=== PATIENT | male | born 1970 | race Caucasian/White ===

== ENCOUNTER 2021-09-14 02:48 | Emergency (ER) | payer OTHER, SELFPAY ==
[2021-09-14 04:01] VITALS: BP 168/89; PULSE 82; RESP 18; TEMP 36.7; O2SAT 98; BMI 28.8
== END 2021-09-14 05:16 | disposition left against medical advice (07) ==
PROVIDERS: Emergency Provider Emergency Medicine; PCP Internal Medicine
DX: H57.11 Ocular pain, right eye (principal)

== ENCOUNTER 2025-03-12 12:15 | Emergency (ER) | payer OTHER, SELFPAY ==
--- NOTE | ~2025-03-12 | XR_ITS ---
CLINICAL HISTORY: palp 2 view chest x-ray. Comparison: None Findings: No consolidation or effusion. A 1 cm nodular density overlies left upper lung of the posterior left 5th and 6th rib interspace. Cardiac and mediastinal contours are unremarkable. Bones unremarkable. Impression: 1. No acute pulmonary disease. 2. 1 cm nodular density overlying left upper lung. Consider comparison with prior chest x-rays, if available, or further evaluation with nonemergent CT chest. This document has been electronically signed by: Levar Ac MD on 03/12/2025 15:09:15
[2025-03-12 12:20] VITALS: BP 190/114; PULSE 120; O2SAT 96
--- NOTE | 2025-03-12 12:22 | ECG_ITS ---
Test Reason : HYPERTENSION Blood Pressure : */* mmHG Vent. Rate : 87 BPM Atrial Rate : 87 BPM P-R Int : 146 ms QRS Dur : 84 ms QT Int : 370 ms P-R-T Axes : 45 67 45 degrees QTcB Int : 445 ms Normal sinus rhythm Normal ECG When compared with ECG of 02-Sep-2004 07:11, QT has lengthened Referred By: Generic ED Physician Electronically Signed By: YOANNA WARREN MD
[2025-03-12 12:29] VITALS: BP 173/101; PULSE 94; RESP 19; TEMP 36.4; O2SAT 98; BMI 29.2
--- OUTSIDE RECORDS SUMMARY | 2025-03-12 12:51 | XMS_ITS | Clinical Summary ---
Author Organization [facility] Address [address] [facility] [address] [place] [id number] Phone Care Team Providers Care Meat Team Lead Name Role Phone Minor Cortés MD Primary Care Provider [phone] Allergies No known active allergies Medications atorvastatin (LIPITOR) 10 MG tablet Take 10 mg by mouth. 09/30/2023 Active ibuprofen (ADVIL,MOTRIN) 800 MG tablet Take 800 mg by mouth every 8 (eight) hours as needed. 07/27/2023 Active B-complex with vitamin C tablet Take 1 tablet by mouth daily. Active adalimumab-adaz (HYRIMOZ,CF, PEN) 40 mg/0.4 mL SubQ PnIjIndications: Psoriatic arthritis Inject 1 pen. under the skin every 14 (fourteen) days. 0.8 mL 5 10/31/2024 Active Active Problems Problem Noted Date Diagnosed Date Encounter for monitoring of adalimumab therapy 0 06/20/2024 Psoriatic arthritis 03/16/2023 Assessment & Plan (10/05/2023 9:16 AM EDT): Psoriatic arthritis very well-controlled on Hyrimoz every 14 days. He has no active synovitis and minimal psoriasis on his knees. Sent him for some baseline labs today. Assessment & Plan (03/16/2023 2:29 PM EST): Psoriatic arthritis well-controlled on Humira every other week. He has no active synovitis or swelling and minimal psoriasis. Labs to be checked in April by Dr. Oliver. Primary osteoarthritis involving multiple joints 03/16/2023 Assessment & Plan (10/05/2023 9:17 AM EDT): Osteoarthritis in multiple joints with no swelling and minimal stiffness. He can take Ibuprofen 800mg as needed. He was previously on diclofenac but has not taken this in a very long time. Assessment & Plan (03/16/2023 2:30 PM EST): Osteoarthritis in multiple joints bothersome only with prolonged activity. He can take Tylenol 650 mg as needed or resume taking diclofenac only as needed. Family History Medical History Relation Comments Heart attack Brother No Known Problems Daughter Alzheimer's disease Father Cancer Mother No Known Problems Son Relation Status Comments Brother Daughter Father Mother Son Social History Tobacco Use Types Packs/Day Years Used Date Smoking Tobacco: Former Cigarettes Smokeless Tobacco: Never Tobacco Cessation:Counseling Given: Not Answered Alcohol Use Standard Drinks/Week Comments Yes 0 (1 standard drink = 0.6 oz pur e alcohol) 2-3 month Education Answer Date Recorded Are you interested in more education? Not on florian e 03/03/2023 Are you concerned about learning? Not on file 03/03/2023 No 03/03/2023 No 03/03/2023 Digital Access Answer Date Recorded No 03/03/2023 No 03/03/2023 Reliable internet access at home? Not on file 03/03/2023 Device with a working camera? Not on file Sex and Gender Information Value Date Recorded Sex Assigned at Not on file Legal Sex Male 9:42 AM EDT Gender Identity Not on file Sexual Orientation Not on file Last Filed Vital Signs Vital Sign Reading Time Taken Comments Blood Pressure 128/72 10/31/2024 8:58 AM EDT Pulse 78 10/05/2023 8:35 AM EDT Temperature - - Respiratory Rate - - Oxygen Saturation 98% 10/05/2023 8:35 AM EDT Inhaled Oxygen Concentration - - Weight 81.6 kg (180 lb) 10/31/2024 8:58 AM EDT Height 172.7 cm (5' 8 ) 10/05/2023 8:35 AM EDT Body Mass Index 27.37 10/05/2023 8:35 AM EDT Plan of Treatment Upcoming Encounters Date Type Department Care Team (Late st Contact Info) Description 05/15/2025 2:00 PM EST Office Visit [facility] Rheumatology [address] [place] [address] Bessy Dowd, DO [address] [facility], [address] [place] [address] Health Maintenance Due Date Last Done Comments Adult Td,Tdap Booster 1968 LIPID PANEL 1968 COVID-19 VACCINE (#1) 1973 DEPRESSION SCREENING 1980 SMOKING Hx and SMOKELESS TOBACCO SCREENING 1981 HIV ONE-TIME SCREENING (18-65 YEARS) 1986 PNEUMOCOCCAL VACCINES (50+ years) (1 of 2 - PCV) 10/29/1987 ZOSTER VACCINES (1 of 2) 10/29/1987 SCREENING FOR DIABETES 10/29/2003 COLOGUARD 2013 COLONOSCOPY 2013 COLORECTAL CANCER SCREENING 2013 FIT TEST 2013 FOBT 2013 SIGMOIDOSCOPY 2013 VIRTUAL COLONOSCOPY 2013 RSV VACCINE (1 - Risk 50-74 years 1-dose series) 2018 INFLUENZA VACCINE (#1) 2024 , 02/01/2020, 01/13/2017, Additional history exists HEPATITIS C SCREENING Completed 10/27/2024 HEPATITIS A VACCINES Aged Out No long er eligible based on patient's age to complete this topic HIB VACCINES Aged Out No longer eligi ble based on patient's age to complete this topic MENINGOCOCCAL VACCINES (ACWY) Aged Out No longer eligible based on patient's age to complete this topic MENINGOCOCCAL VACCINES (B) Aged Out N o longer eligible based on patient's age to complete this topic Medical Devices Not on file Procedures Procedure Name Priority Date/Time Associated Diagnosis Comments HEPATITIS C ANTIBODY, QUALITATIVE Routine 10/27/2024 1:05 PM EDT Encounter for monitoring of adalimumab therapy from Last 3 Months or Most Recently Relevant to Health Maintenance Results * Hepatitis C antibody, qualitative (10/27/2024 1:05 PM EDT) HCV NON-REACTIV E NON-REACTI VE Blood 10/27/2024 1:05 PM EDT 10/27/2024 1:19 PM EDT us Tonja Ayala MD, MPH LAB BLOOD BKR ORDERABLES Final Result [address] [place] [address] from Last 3 Months or Most Recently Relevant to Health Maintenance Insurance [employer] PPO [address] [place] [address] [facility] P[address] [place] [id number] [facility] [address] [place] [address] [facility] [address] [place] [address] [facility] [address] [place] [address] [employer] Care Teams Meat Team Lead Relationship Specialty Start Date End Date Minor Cortés MD [address] [place] [address] PCP - General Internal Medicine 03/03/23 Additional Source Comments The information contained in this document represents components of the legal health record. It is not the complete legal health record.[facility]
--- NOTE | 2025-03-12 13:03 | ED_ITS ---
HPI - Arrhythmia/Palpitations General Chief Complaint: Arrhythmia/Palpitations Stated Complaint: SOB HYPERTENSIVE Time Seen by Provider: 03/12/25 12:50 Source: patient Mode of arrival: ambulatory Limitations: no limitations History of Present Illness ED Provider: HPI narrative: 54-year-old male, smoker but reports to be otherwise healthy, no consistent drug use, has not done cocaine in' many years', yesterday was drinking alcohol, his friend came over and patient did cocaine, workup today was having coffee started having palpitations, chest discomfort, became very anxious, checked his blood pressure it was elevated, came to emergency department. No history of CAD Related Data Home Medications ?Medication ?Instructions ?Recorded ?Confirmed adalimumab 40 mg/0.4 mL 40 mg subcut Q2W 01/28/21 subcutaneous pen kit (Humira(CF) Pen) Previous Rx's ?Medication ?Instructions ?Recorded valacyclovir 1 gram tablet 1,000 mg PO BID 7 days #14 tabs 01/28/21 (Valtrex) Allergies Allergy/AdvReac Type Severity Reaction Status Date / Time No Known Allergies Allergy Verified 03/12/25 12:31 Review of Systems 2 Constitutional: Constitutional: Reports as per HPI [facility] Social History Social History Advance Directives: No Advance Directives Information Provided: Yes Physical Exam 2 Exam: Exam: General: ?Appears of stated age ? ?PERRLA, EOMI, MMM, ? Neck: Supple, no LAD ? ?CV: RRR, no obvious murmurs appreciated, radial pulses +2 bilaterally ? ?Resp: ?No wheezing rales rhonchi no stridor moving air well ? Abd: ?Bowel sounds are present, no tenderness no rebound no rigidity ? ?MSK: FROM, strength 5/5 all extremities no lower extremity edema ? Skin: Warm, dry, intact, ? ?Neuro: ?Alert and oriented x3, moving upper and lower extremities symmetrically, no obvious facial asymmetry noted, cranial nerves 2-12 intact Vital Signs: Vital Signs: Last Vital Signs Temp 97.6 F 03/12/25 12:29 Pulse 78 03/12/25 14:34 Resp 13 03/12/25 14:34 BP 139/79 03/12/25 14:34 Pulse Ox 99 03/12/25 14:34 O2 Del Method Room Air 03/12/25 14:34 BMI result Body Mass Index 29.2 Medications Administered Discontinued Medications Generic Name Dose Route Start Last Admin Trade Name Bekah PRN Reason Stop Dose Admin Diazepam 5 mg 03/12/25 13:02 03/12/25 13:37 Diazepam 10 Mg/2 Ml Cartridge IVPUSH 03/12/25 13:03 5 mg STAT STA Administration Sodium Chloride 1,000 mls @ 999 mls/hr 03/12/25 13:15 03/12/25 13:37 Ns IV 03/12/25 14:15 999 mls/hr .Q1H1M ANT Administration Ondansetron HCl 4 mg 03/12/25 13:02 03/12/25 13:37 Ondansetron Hcl 4 Mg/2 Ml Vial IVPUSH 03/12/25 13:03 4 mg ONCE ONE Administration Medical Decision Making Medical Decision Making MDM Narrative: 1:09 PM 03/12/2025 (Dr. Kenton Nieves): 54-year-old, smoker, presenting with chest discomfort, anxiety, elevated blood pressure, does not do cocaine on a regular basis, did drinking yesterday and did do some cocaine, we will give fluids, antiemetics, Valium as the primary treatment for potential Prinzmetal's angina, ECG without evidence for underlying ACS, 0no QTC prolongation, we will continue to monitor, we will check troponin, discussed with the patient there was no utility of addressing the blood pressure itself right now accept with benzodiazepines and then if he is to be discharged he can monitor on outpatient basis 2:51 PM 03/12/2025 (Dr. Kenton Nieves): Re-evaluated, feels better, blood pressure is better, we will discharge Differential Diagnosis Differential Diagnoses: The differential diagnosis associated with the presentation includes (ACS, pneumothorax, aortic dissection, PE, Boerhaave syndrome, Prinzmetal's angina) Admission/Observation Consideration of admission/observation: Escalation of care including admission/observation considered Lab Data [facility] Lab Attestation statement: I reviewed the patient's lab results. 03/12/25 13:29 03/12/25 13:29 Labs: Lab Results 03/12/25 03/12/25 Range/Units 13:29 13:31 WBC 8.5 (4.8-10.8) X10*3/uL RBC 5.16 (4.60-5.80) X10*6/uL Hgb 15.6 (14.0-18.0) g/dl Hct 44.6 (42.0-52.0) % MCV 86.4 (80.0-98.0) fL MCH 30.2 (27.0-33.0) pg MCHC 35.0 (31.0-36.0) g/dl RDW 12.6 (11.0-16.0) % Plt Count 222 (160-400) X10*3/uL MPV 10.3 (9.4-12.4) fL Immature Gran % (Auto) 0.8 H (0.0-0.4) % Neut % (Auto) 67.7 (45-73) % Lymph % (Auto) 24.0 (20-40) % [place] % (Auto) 6.8 (2-11) % Eos % (Auto) 0.0 (0-4) % Baso % (Auto) 0.7 (0-2) % Lymph # (Auto) 2.1 (1.2-4.9) X10*3/uL [place] # (Auto) 0.6 (0.1-1.2) X10*3/uL Eos # (Auto) 0.0 (0.0-0.4) X10*3/uL Baso # (Auto) 0.1 (0.0-0.2) X10*3/uL Abs Immat Gran (auto) 0.07 H (0.00-0.03) X10*3/uL Absolute Neuts (auto) 5.8 (2.0-8.3) x10*3/uL Absolute Nucleated RBC 0.000 (0.0-0.012) X10*3/uL Nucleated RBC % (auto) 0.0 (0.0-0.2) /100WBC Sodium 141 (135-145) mmol/L Potassium 4.2 (3.3-5.1) mmol/L Chloride 106 (96-108) mmol/L Carbon Dioxide 26 (22-29) mmol/L Anion Gap 13 (12-20) BUN 10 (9-16) mg/dL Creatinine 0.66 (0.5-1.4) mg/dL Estim Creat Clear Calc 134.2 Estimated GFR > 60 Random Glucose 147 H (60-115) mg/dL Calcium 9.3 (8.4-10.2) mg/dL Total Bilirubin 0.3 (0.0-1.0) mg/dL AST 38 H (5-37) U/L ALT 47 H (0-40) U/L Alkaline Phosphatase 80 (39-117) U/L Troponin I High Sens < 2.7 (<3.5-35.0) ng/L Total Protein 8.0 (6.5-8.0) g/dL Albumin 5.0 (3.5-5.0) g/dL Urine Color Yellow Urine Appearance Clear Urine pH 7.0 (5.0-9.0) Ur Specific [place] 1.020 (1.005-1.025) Urine Protein 30 (1+) H (Neg-Trace) mg/dL Urine Glucose (UA) 100 H (Negative) mg/dL Urine Ketones Negative (Negative) mg/dL Urine Blood Negative (Negative) Urine Nitrite Negative (Negative) Ur Leukocyte Esterase Trace H (Negative) Urine RBC 0-2 (0-2) /HPF Urine WBC 0-5 (0-5) /HPF Ur Squamous Epith Cells 0-2 (0-2) /HPF Urine Bacteria None Seen (None Seen) Hyaline Casts 0-2 (0-2) /LPF Independent Interpretation I performed an independent interpretation of an: EKG (87 beats per minute otherwise normal ECG without dysrhythmia, AV maribeth blocks or ST-T changes to suspect underlying ACS, my independent interpretation, no QTC prolongation) Critical Care Time Critical Care Time Critical Care Time: Yes Total Critical Care Time: 35 Attestation: Time is exclusive of separately billable procedures. Time includes: direct patient care, patient reassessment, coordination of patient care, interpretation of data (laboratory data, pulse oximetry, arterial blood gases and chest xrays), review of patient's medical records, medical consultation and documentation of patient care. Procedures excluded from critical care time: central intravenous line placement and electrocardiography. Discharge Plan Discharge Clinical Impression: Chest pain, precordial, Heart palpitations Patient Disposition: Home, Self-Care Instructions: Chest Pain (ED) Additional Instructions: Lifestyle changes as discussed, continue with hydration, quitting smoking etc. workup today included EKG, blood work chest x-ray, cardiac enzymes all reassuring you received fluids antiemetics and medication for anxiety with improvement Prescriptions: No Action valacyclovir [Valtrex] 1 gram tablet 1,000 mg PO BID 7 Days Qty: 14 0RF Print Language: Swedish
[2025-03-12 13:37] LABS: MANUAL DIFF FLAG NO
[2025-03-12] MEDS: diazePAM 10 MG/2 ML CARTRIDGE 5 MG IVPUSH (13:37)
[2025-03-12 13:39] LABS: Hematocrit 44.6 % (42.0-52.0); Hemoglobin 15.6 g/dl (14.0-18.0); Imm Gran Abs Auto 0.07 X10*3/uL (0.00-0.03); Imm Gran Pct Auto 0.8 % (0.0-0.4); Lymphocytes Absolute Auto 2.1 X10*3/uL (1.2-4.9); Mean Corpuscular HGB Conc 35.0 g/dl (31.0-36.0); Mean Corpuscular Hemoglobin 30.2 pg (27.0-33.0); Mean Corpuscular Volume 86.4 fL (80.0-98.0); NRBC Abs Auto 0.000 X10*3/uL (0.0-0.012); NRBC Pct Auto 0.0 /100WBC (0.0-0.2); Platelet Count 222 X10*3/uL (160-400); Red Blood Count 5.16 X10*6/uL (4.60-5.80); White Blood Count 8.5 X10*3/uL (4.8-10.8)
[2025-03-12 13:40] LABS: Appearance Urine Clear; Glucose Urine UA 100 mg/dL (Negative); PH 7.0 (5.0-9.0); Specific Gravity - Urine 1.020 (1.005-1.025); UMIC TRIGGER UACC YES
[2025-03-12 14:10] LABS: Alanine Aminotransferase 47 U/L (0-40); Albumin Level 5.0 g/dL (3.5-5.0); Alkaline Phosphatase 80 U/L (39-117); Anion Gap 13 (12-20); Aspartate Amino Transferase 38 U/L (5-37); Blood Urea Nitrogen 10 mg/dL (9-16); Calcium 9.3 mg/dL (8.4-10.2); Carbon Dioxide 26 mmol/L (22-29); Chloride 106 mmol/L (96-108); Creatinine Clr Calc Pharmacy 134.2; Estimated Glomerular Filt Rate > 60; Potassium 4.2 mmol/L (3.3-5.1); Sodium 141 mmol/L (135-145); Total Protein 8.0 g/dL (6.5-8.0)
[2025-03-12 14:18] LABS: Troponin-I High Sensitivity < 2.7 ng/L (<3.5-35.0)
[2025-03-12 14:34] VITALS: BP 139/79; PULSE 78; RESP 13; O2SAT 99
[2025-03-12 15:19] VITALS: BP 139/79; PULSE 78; RESP 13; TEMP 36.6; O2SAT 99
== END 2025-03-12 15:19 | disposition home or self-care (01) ==
PROVIDERS: Emergency Provider Emergency Medicine; PCP Internal Medicine
DX: I49.8 Other specified cardiac arrhythmias (principal); R06.02 Shortness of breath; R00.2 Palpitations; R07.2 Precordial pain; R11.0 Nausea; Z79.899 Other long term (current) drug therapy
CPT/HCPCS: 36415; 71046; 80053; 81001; 84484; 85025; 93005; 96361; 96374; 96375; 99284; J2405; J3360

== ENCOUNTER → 2025-03-12 12:22 | Outpatient (BNV) | payer OTHER, SELFPAY | PROVIDERS: Emergency Provider Emergency Medicine; PCP Internal Medicine; Visit Provider Internal Medicine Cardiovascular Disease | DX: I10 Essential (primary) hypertension (principal) | CPT/HCPCS: 93010 ==

== ENCOUNTER → 2025-03-12 12:38 | Outpatient (BNV) | payer OTHER, SELFPAY | PROVIDERS: Emergency Provider Emergency Medicine; PCP Internal Medicine; Visit Provider Radiology Diagnostic Radiology | DX: R91.8 Other nonspecific abnormal finding of lung field (principal) | CPT/HCPCS: 71046 ==